=== PATIENT | male | born 1985 | race Caucasian/White ===

== ENCOUNTER 2018-07-04 06:57 | Emergency (ER) | payer MEDICAID ==
[~2018-07-04] VITALS: Ht 177.8 cm; Wt 104.2 kg
[2018-07-04 08:01] LABS: BASOPHILS # (AUTO) 0.04 x10^3/uL (0-0.1); BASOPHILS % (AUTO) 1 % (0-1); EOSINOPHILS # (AUTO) 0.22 x10^3/uL (0-0.4); EOSINOPHILS % (AUTO) 4 % (1-7); LYMPHOCYTES # (AUTO) 2.68 x10^3/uL (1-3.4); LYMPHOCYTES % (AUTO) 47 % (22-44); MD NO; MEAN CORPUSCULAR HEMOGLOBIN 29.4 pg (27.5-34.5); MEAN CORPUSCULAR HGB CONC 34.3 g/dL (33.2-36.2); MEAN CORPUSCULAR VOLUME 85.7 fL (81-97); MEAN PLATELET VOLUME 9.4 fL (7.4-10.4); MONOCYTES # (AUTO) 0.68 x10^3/uL (0.2-0.8); MONOCYTES % (AUTO) 12 % (2-9); NEUTROPHILS # (AUTO) 2.12 x10^3/uL (1.8-6.8); NEUTROPHILS % (AUTO) 37 % (42-75); PLATELET COUNT 227 x10^3/uL (130-400); RED BLOOD COUNT 5.36 x10^6/uL (4.38-5.82); RED CELL DISTRIBUTION WIDTH 12.6 % (9.4-14.8)
[2018-07-04 08:11] LABS: ALBUMIN 3.4 g/dL (3.4-5.0); ANION GAP 10 mmol/L (5-15); CALCIUM 8.3 mg/dL (8.5-10.1); CHLORIDE 100 mmol/L (98-107)
[2018-07-04 08:23] VITALS: BP 151/79
== END 2018-07-04 09:07 | disposition home or self-care (01) ==
LOC: ED 08:55
DX: E11.65 Type 2 diabetes mellitus with hyperglycemia (principal)
CPT/HCPCS: 36415; 71046; 80048; 80164; 82040; 85025; 93005; 99285

== ENCOUNTER 2018-07-21 05:28 | Emergency (ER) | payer MEDICAID ==
[~2018-07-21] VITALS: Ht 177.8 cm; Wt 105.3 kg
[2018-07-21] MEDS ORDERED: LEVETIRACETAM 500 MG TABLET PO ONE (06:00)
[2018-07-21] MEDS ORDERED: LEVETIRACETAM 500 MG TABLET ONE (06:00)
[2018-07-21 06:33] LABS: ANION GAP 10 mmol/L (5-15); CALCIUM 8.5 mg/dL (8.5-10.1); CHLORIDE 100 mmol/L (98-107)
[2018-07-21 06:35] LABS: CREATININE 0.68 mg/dL (0.7-1.3)
[2018-07-21 06:50] VITALS: BP 145/82
[2018-07-21] MEDS ORDERED: VALPROIC ACID 250 MG CAPSULE PO ONE (07:00)
== END 2018-07-21 07:04 | disposition home or self-care (01) ==
LOC: ED 06:58
DX: G40.319 Generalized idiopathic epilepsy and epileptic syndromes, intractable, without status epilepticus (principal); Z72.9 Problem related to lifestyle, unspecified; I10 Essential (primary) hypertension; F17.200 Nicotine dependence, unspecified, uncomplicated
CPT/HCPCS: 36415; 80048; 80164; 93005; 99285

== ENCOUNTER 2018-07-24 18:44 | Emergency (ER) | payer MEDICAID ==
[~2018-07-24] VITALS: Ht 177.8 cm; Wt 104.0 kg
[2018-07-24 18:47] VITALS: BP 151/98
[2018-07-24] MEDS ORDERED: LEVE500T53 PO (19:24)
[2018-07-24] MEDS ORDERED: DIVA-61 PO (19:24)
[2018-07-24] MEDS ORDERED: METF500T17 PO (19:24)
== END 2018-07-24 19:50 | disposition home or self-care (01) ==
LOC: ED 18:58
DX: G40.909 Epilepsy, unspecified, not intractable, without status epilepticus (principal); Z76.0 Encounter for issue of repeat prescription; E11.9 Type 2 diabetes mellitus without complications
CPT/HCPCS: 99283

== ENCOUNTER 2018-08-26 12:23 | Emergency (ER) | payer SELFPAY ==
[~2018-08-26] VITALS: Ht 180.3 cm; Wt 102.0 kg
[~2018-08-26 12:23] MED LIST: DIVA-61 PO; LEVE500T53 PO; METF500T17 PO
[2018-08-26 12:32] VITALS: BP 138/87
[2018-08-26] MEDS ORDERED: BACITRACIN ZINC OINT 500U/GM, 0.9 GM ONE (13:01)
[2018-08-26 13:21] LABS: BASOPHILS # (AUTO) 0.05 x10^3/uL (0-0.1); BASOPHILS % (AUTO) 1 % (0-1); EOSINOPHILS # (AUTO) 0.14 x10^3/uL (0-0.4); EOSINOPHILS % (AUTO) 3 % (1-7); LYMPHOCYTES # (AUTO) 1.91 x10^3/uL (1-3.4); LYMPHOCYTES % (AUTO) 38 % (22-44); MD NO; MEAN CORPUSCULAR HEMOGLOBIN 30.4 pg (27.5-34.5); MEAN CORPUSCULAR HGB CONC 34.4 g/dL (33.2-36.2); MEAN CORPUSCULAR VOLUME 88.4 fL (81-97); MEAN PLATELET VOLUME 8.9 fL (7.4-10.4); MONOCYTES # (AUTO) 0.58 x10^3/uL (0.2-0.8); MONOCYTES % (AUTO) 12 % (2-9); NEUTROPHILS # (AUTO) 2.31 x10^3/uL (1.8-6.8); NEUTROPHILS % (AUTO) 46 % (42-75); PLATELET COUNT 259 x10^3/uL (130-400); RED BLOOD COUNT 5.21 x10^6/uL (4.38-5.82); RED CELL DISTRIBUTION WIDTH 12.7 % (9.4-14.8)
[2018-08-26] MEDS ORDERED: LEVETIRACETAM 500 MG TABLET ONE (13:27)
[2018-08-26] MEDS ORDERED: DIVALPROEX 500 MG TABLET.DR PO ONE (13:30)
[2018-08-26] MEDS ORDERED: LEVETIRACETAM 500 MG TABLET PO ONE (13:30)
[2018-08-26 13:31] LABS: ALBUMIN 3.4 g/dL (3.4-5.0); ANION GAP 8 mmol/L (5-15); CALCIUM 8.1 mg/dL (8.5-10.1); CHLORIDE 105 mmol/L (98-107); CREATININE 0.77 mg/dL (0.7-1.3)
== END 2018-08-26 14:48 | disposition home or self-care (01) ==
LOC: ED 14:42
DX: G40.909 Epilepsy, unspecified, not intractable, without status epilepticus (principal); Z76.0 Encounter for issue of repeat prescription; E11.9 Type 2 diabetes mellitus without complications; I10 Essential (primary) hypertension; F17.200 Nicotine dependence, unspecified, uncomplicated
CPT/HCPCS: 36415; 80048; 82040; 85025; 99284

== ENCOUNTER 2018-12-28 09:55 | Emergency (ER) | payer SELFPAY ==
[~2018-12-28] VITALS: Ht 175.3 cm; Wt 95.0 kg
--- NOTE | 2018-12-28 10:54 | NUR ---
MD RAY. PT REMAINS A&O AND CONTINUE TO MONITOR
[2018-12-28 11:19] LABS: BASOPHILS # (AUTO) 0.02 x10^3/uL (0-0.1); BASOPHILS % (AUTO) 0 % (0-1); EOSINOPHILS % (AUTO) 1 % (1-7); LYMPHOCYTES # (AUTO) 1.55 x10^3/uL (1-3.4); LYMPHOCYTES % (AUTO) 17 % (22-44); MD NO; MEAN CORPUSCULAR HGB CONC 33.6 g/dL (33.2-36.2); MEAN CORPUSCULAR VOLUME 86.3 fL (81-97); MEAN PLATELET VOLUME 8.6 fL (7.4-10.4); MONOCYTES # (AUTO) 0.68 x10^3/uL (0.2-0.8); MONOCYTES % (AUTO) 7 % (2-9); NEUTROPHILS # (AUTO) 7.08 x10^3/uL (1.8-6.8); NEUTROPHILS % (AUTO) 75 % (42-75); PLATELET COUNT 322 x10^3/uL (130-400); RED BLOOD COUNT 5.13 x10^6/uL (4.38-5.82); RED CELL DISTRIBUTION WIDTH 12.8 % (9.4-14.8)
[2018-12-28 11:32] LABS: ANION GAP 5 mmol/L (5-15); CHLORIDE 106 mmol/L (98-107)
--- NOTE | 2018-12-28 11:49 | NUR ---
AFTER RETURN FROM CT, URINE SAMPLE OBTAINED. PT REMAINS A&O, NO DISTRESS. CONTINUE TO MONITOR
[2018-12-28 11:58] VITALS: BP 131/86
[2018-12-28] MEDS ORDERED: DIVALPROEX 500 MG TABLET.DR PO ONE (12:00)
[2018-12-28] MEDS ORDERED: LEVETIRACETAM 1,000 MG in SODIUM CHLORIDE 0.9% 100 ML IV ONE (12:00)
[2018-12-28] MEDS ORDERED: DIVALPROEX 500 MG TABLET.DR ONE (12:06)
[2018-12-28 12:18] LABS: AMPHETAMINE SCREEN, URINE Positive (Negative); BARBITURATE SCREEN, URINE Negative (Negative); BENZODIAZEPINE SCREEN, URINE Negative (Negative); CANNABINOID SCREEN, URINE Positive (Negative); COCAINE SCREEN, URINE Negative (Negative); METHADONE SCREEN, URINE Negative (Negative); OPIATE SCREEN, URINE Positive (Negative)
--- NOTE | 2018-12-28 12:41 | NUR ---
KEPPR INFUSING VIA IV
--- NOTE | 2018-12-28 13:38 | NUR ---
ambulated without assistance to discharge window, steady gait
== END 2018-12-28 13:38 | disposition home or self-care (01) ==
LOC: ED 13:04
DX: G40.309 Generalized idiopathic epilepsy and epileptic syndromes, not intractable, without status epilepticus (principal); Z72.9 Problem related to lifestyle, unspecified; I10 Essential (primary) hypertension; E11.9 Type 2 diabetes mellitus without complications
CPT/HCPCS: 36415; 70450; 80048; 80164; 80307; 85025; 96365; 99284; J1953